=== PATIENT | male | born 1995 | race Two or more races ===

== ENCOUNTER 2019-03-16 10:28 | Emergency (ER) | payer SELFPAY ==
[~2019-03-16] VITALS: Ht 180.3 cm; Wt 72.6 kg
[2019-03-16 10:35] VITALS: BP 128/77
[2019-03-16] MEDS ORDERED: LIDOCAINE 1% HCL (LOCAL ANESTH.) INJ 20ML MDV IJ ONE (12:00)
== END 2019-03-16 13:01 | disposition home or self-care (01) ==
LOC: ER 10:28
DX: S71.112A Laceration without foreign body, left thigh, initial encounter (principal); W26.0XXA Contact with knife, initial encounter; Y93.89 Activity, other specified; Y99.8 Other external cause status; Y92.89 Other specified places as the place of occurrence of the external cause
CPT/HCPCS: 12001; 99283; J2001

== ENCOUNTER 2022-01-20 15:42 | Emergency (ER) | payer SELFPAY ==
[~2022-01-20] VITALS: Ht 182.9 cm; Wt 81.6 kg
[2022-01-20] MEDS ORDERED: ALBUTEROL SULF 2.5 MG/0.5ML(0.5%) NEB SOLN HHN ONE (16:00)
[2022-01-20] MEDS ORDERED: methylPREDNISolone SOD SUCC 125 MG/2 ML VL IM ONE (16:00)
[2022-01-20] MEDS ORDERED: IPRATROPIUM BROM 0.5 MG/2.5ML INH SOL HHN ONE (16:00)
[2022-01-20 16:19] VITALS: BP 142/79
[2022-01-20] MEDS ORDERED: ALBUAER3 IN (17:14)
[2022-01-20] MEDS ORDERED: METH4PAK PO (17:14)
== END 2022-01-20 18:39 | disposition left against medical advice (07) ==
LOC: ER 15:42
DX: J45.909 Unspecified asthma, uncomplicated (principal); F12.10 Cannabis abuse, uncomplicated; Z53.29 Procedure and treatment not carried out because of patient's decision for other reasons
CPT/HCPCS: 71046; 94640; 96372; 99283; J2930; J7644